=== PATIENT | male | born 1985 | race Two or more races ===

== ENCOUNTER 2020-11-17 12:06 | Inpatient (IN) | payer OTHER ==
[~2020-11-17] VITALS: Ht 170.2 cm; Wt 68.2 kg
[2020-11-17] MEDS ORDERED: HALOPERIDOL 5 MG TABLET PO ONE (13:00)
[2020-11-17] MEDS ORDERED: LORazepam 1 MG TABLET PO ONE (13:00)
[2020-11-17] MEDS ORDERED: ACETAMINOPHEN 325 MG TABLET PO PRN ×2 (13:30)
[2020-11-17] MEDS ORDERED: ONDANSETRON HCL 4 MG/2 ML VIAL IVP PRN (13:30)
[2020-11-17] MEDS ORDERED: MAGNESIUM HYDROXIDE SUSPENSION 30 ML UDCUP PO PRN (13:30)
[2020-11-17 14:44] LABS: COVID AG,FIA SOURCE NASOPHARYNGEAL
[2020-11-17 15:30] VITALS: BP 138/77
[2020-11-17 15:35] LABS: AMPHET/METH SCREEN,URINE NEGATIVE (NEGATIVE); BARBITURATE SCREEN, URINE NEGATIVE (NEGATIVE); BENZODIAZEPINES SCREEN,URINE NEGATIVE (NEGATIVE); CANNABINOID SCREEN,URINE NEGATIVE (NEGATIVE); COCAINE SCREEN,URINE NEGATIVE (NEGATIVE); METHADONE SCREEN, URINE NEGATIVE (NEGATIVE); OPIATE SCREEN,URINE NEGATIVE (NEGATIVE); PHENCYCLIDINE SCREEN,URINE NEGATIVE (NEGATIVE)
[2020-11-17 20:48] VITALS: BP 128/81
[2020-11-18 05:15] VITALS: BP 112/72
[2020-11-18 08:11] VITALS: BP 134/76
[2020-11-18] MEDS: FAMOTIDINE 20 MG TABLET PO SCH (09:00)
[2020-11-18 20:00] VITALS: BP 117/71
[2020-11-18] MEDS: RisperiDONE 1 MG TABLET PO SCH (20:54)
[2020-11-19 07:06] LABS: BASOPHILS % (AUTO) 0.5 % (0.0-2.0); EOSINOPHILS % (AUTO) 3.1 % (1.0-6.0); LYMPHOCYTES # (AUTO) 1.7 K/uL (1.0-4.8); LYMPHOCYTES % (AUTO) 45.6 % (22.0-44.0); MEAN CORPUSCULAR HEMOGLOBIN 29.9 pg (26.0-34.0); MEAN CORPUSCULAR HGB CONC 33.2 G/dL (31.0-37.0); MEAN CORPUSCULAR VOLUME 90 fL (80-100); MONOCYTES # (AUTO) 0.4 K/uL (0.1-1.0); MONOCYTES % (AUTO) 10.3 % (2.0-9.0); NEUTROPHILS # (AUTO) 1.6 K/uL (1.8-7.7); NEUTROPHILS % (AUTO) 40.5 % (40.0-70.0); PLATELET COUNT (AUTO) 214 K/uL (150-450); RED BLOOD CELL COUNT(AUTO) 4.66 MIL/uL (4.50-5.90); RED CELL DISTRIBUTION WIDTH 12.2 % (11.5-14.5)
[2020-11-19 07:31] LABS: ALANINE AMINOTRANSFERASE 35 U/L (12-78); ALBUMIN 3.9 g/dL (3.4-5.0); ALKALINE PHOSPHATASE 82 U/L (46-116); ANION GAP 8 mmol/L (8-16); ASPARTATE AMINOTRANSFERASE 16 U/L (15-37); BILIRUBIN,TOTAL 0.7 mg/dL (0.1-1.0); CALCIUM, TOTAL 9.2 mg/dL (8.8-10.5); CARBON DIOXIDE 27 mmol/L (22-29); CHLORIDE 104 mmol/L (98-107); CREATININE 1.12 mg/dL (0.60-1.30); GLOMERULAR FILTR. RATE CALC > 60 mL/min (>60); GLUCOSE,RANDOM 88 mg/dL (70-110); POTASSIUM 4.1 mmol/L (3.5-5.1); SODIUM SERUM 139 mmol/L (136-145); THYROID STIMULATING HORMONE 1.15 uIU/mL (0.36-3.74); TOTAL PROTEIN, SERUM 7.9 g/dL (6.4-8.2); UREA NITROGEN, BLOOD 20 mg/dL (7-18)
[2020-11-19 08:08] VITALS: BP 119/62
[2020-11-19] MEDS: FAMOTIDINE 20 MG TABLET PO SCH (09:00)
[2020-11-19] MEDS: RisperiDONE 1 MG TABLET PO SCH ×2 (09:00→20:41)
[2020-11-19 20:43] VITALS: BP 118/74
[2020-11-20 05:08] VITALS: BP 113/75
[2020-11-20 07:27] VITALS: BP 115/79
[2020-11-20] MEDS: FAMOTIDINE 20 MG TABLET PO SCH (08:46)
[2020-11-20] MEDS: RisperiDONE 1 MG TABLET PO SCH ×2 (08:47→20:08)
[2020-11-20 20:05] VITALS: BP 128/74
[2020-11-21 04:10] VITALS: BP 116/68
[2020-11-21 07:51] VITALS: BP 116/74
[2020-11-21] MEDS: FAMOTIDINE 20 MG TABLET PO SCH (08:14)
[2020-11-21] MEDS: RisperiDONE 1 MG TABLET PO SCH (08:14)
[2020-11-21] MEDS ORDERED: FAMO20 PO (14:07)
[2020-11-21] MEDS ORDERED: ACET-2247 PO (14:08)
[2020-11-21] MEDS ORDERED: RISP1TAB48 PO (14:08)
[2020-11-21] MEDS ORDERED: MOM30 PO (14:09)
== END 2020-11-21 19:20 | DRG 885 ==
LOC: EMS 12:06 → 6S 14:35 → EMS 15:12
PROVIDERS: ADMIT Internal Medicine; ATTEND Internal Medicine
DX: F20.9 Schizophrenia, unspecified (principal); R45.851 Suicidal ideations; Z20.822 Contact with and (suspected) exposure to COVID-19
CPT/HCPCS: 80053; 84443; 85025; 99285